=== PATIENT | female | born 1965 | race Caucasian/White ===

== ENCOUNTER 2017-11-21 16:24 | Outpatient (REF) | payer BC, SELFPAY ==
--- NOTE | 2017-11-21 11:00 | PAPFT_PTH ---
PATIENT: Sabiha Malin LOC: [facility] U#:[id number] AGE/SX: 52/F ROOM: RE11/21/[address]: Stephanie Ford MD : 1965 BED: DIS: 11/21/2017 SPEC #: [id number] RECD: 11/21/17 18:49 STATUS: SHELIA REShen #: [id number] GAGE: 11/21/17 11:[address]: Stephanie Ford DEPT: [facility] Cytology RECD BY: Giovanna Johnson Tissues: 1 - CX/ENDOCX FOR PAP SMEARS Procedures: PAP THIN PREP/UVM Screening HPV DNA PROBE Comments: [id number]
== END 2017-11-21 16:44 ==
LOC: LBN 16:24
PROVIDERS: PCP Family Medicine; Visit Provider Family Medicine
DX: Z12.4 Encounter for screening for malignant neoplasm of cervix (principal); Z11.51 Encounter for screening for human papillomavirus (HPV)
CPT/HCPCS: 88142; 87624

== ENCOUNTER 2018-03-09 18:44 | Outpatient (REF) | payer BC, SELFPAY | END 2018-03-09 19:04 | LOC: LBN 18:44 | PROVIDERS: PCP Family Medicine; Visit Provider Family Medicine | DX: N39.0 Urinary tract infection, site not specified (principal) | CPT/HCPCS: 87077; 87086; 87186 ==

== ENCOUNTER 2018-10-10 02:09 | Outpatient (CLI) | payer BC, SELFPAY ==
[2018-01-10 13:26] LABS: Bilirubin Negative (Negative); Blood Trace-intact (Negative); Clarity Clear; Glucose Negative (Negative); Ketones Negative (Negative); Leukocyte Esterase Trace (Negative); Nitrite Negative (Negative); Urobilinogen 0.2 EU/dL (Up TO 0.2)
[2018-01-10 14:08] LABS: Bacteria Few HPF (Negative); C & S Indicated? Yes; Casts Negative LPF (Negative); Crystals Negative HPF (Negative); Epithelial Cells Rare HPF (Negative); Mucus Negative (Negative); WBC 20-50 HPF (0-5)
--- NOTE | 2018-10-10 12:06 | DI.MAMMO_ITS ---
SYMPTOM/DIAGNOSIS: SCREENING Z12.31 MAMMOGRAM: Mammograms were interpreted according to the usual protocol including computer analysis with CAD system, tomosynthesis and C view imaging. The breasts are heterogeneously dense. No dominant mass or clumped microcalcification is identified in either breast. The current examination is compared with previous examinations including February 2016 and there has been no gross interval change in appearance in comparison with the previous studies. CONCLUSION: No specific evidence of malignancy at this time. Routine screening examinations are suggested at yearly intervals in this age group according to the ACS/ACR guidelines. Category 1, breast density category C. MQSA ASSESSMENT OF FINDINGS: Negative. Category 1. Patient will receive a letter notifying them of these results. Bi-RADS category C. The breasts are heterogeneously dense, which may obscure small masses.
== END 2018-10-10 02:29 ==
LOC: LBO 02:09 → DI 12:05
PROVIDERS: PCP Family Medicine; Visit Provider Family Medicine
DX: R30.0 Dysuria (principal); Z12.31 Encounter for screening mammogram for malignant neoplasm of breast
CPT/HCPCS: 77063; 77067; 87077; 81003; 81015; 87086; 87186

== ENCOUNTER 2018-10-23 10:09 | Outpatient (CLI) | payer BC, SELFPAY ==
--- NOTE | 2018-10-23 10:00 | DI.RAD_ITS ---
SYMPTOM/DIAGNOSIS: LT CHEST WALL PAIN SINCE FALL. R/O RIB FX R07.89 PA AND LATERAL CHEST, LEFT RIBS: 10/23 PA and lateral views of the chest and 4 additional views of the ribs were obtained. A marker is placed over the upper anterior chest wall. On a single view there is question of cortical discontinuity of the anterior portion of the left first rib which could represent a nondisplaced fracture. Otherwise, ribs appear intact. Heart is not enlarged. Lungs are clear and well expanded. No pleural effusion seen. CONCLUSION: Negative examination of the chest. Question of nondisplaced left first rib fracture anteriorly.
== END 2018-10-23 10:29 ==
PROVIDERS: PCP Family Medicine; Visit Provider Nurse Practitioner Family
DX: R07.89 Other chest pain (principal)
CPT/HCPCS: 71046; 71100

== ENCOUNTER 2019-09-17 07:55 | Outpatient (CLI) | payer BC, SELFPAY ==
[2019-09-22 01:15] LABS: SARS-CoV-2 RNA Undetected (Undetected); SARS-CoV-2 Specimen Source Nasopharynx
== END 2019-09-17 08:15 ==
PROVIDERS: PCP Family Medicine; Visit Provider Family Medicine
DX: Z11.59 Encounter for screening for other viral diseases (principal)
CPT/HCPCS: U0003

== ENCOUNTER 2019-12-25 10:44 | Outpatient (REF) | payer BC, SELFPAY ==
[2019-12-25 13:29] LABS: Calculated LDL 110 mg/dL (<100); Cholesterol 210 mg/dL (<200); HDL Cholesterol 88 mg/dL (40-60); Triglyceride 60 mg/dL (<150)
== END 2019-12-25 11:04 ==
LOC: LBN 10:44
PROVIDERS: PCP Family Medicine; Visit Provider Emergency Medicine
DX: Z13.220 Encounter for screening for lipoid disorders (principal)
CPT/HCPCS: 80061

== ENCOUNTER 2020-07-07 16:09 | Outpatient (REF) | payer BC, SELFPAY ==
--- NOTE | 2020-07-07 15:00 | PAPFT_PTH ---
PATIENT: Sabiha Malin LOC: [facility] U#:[id number] AGE/SX: 54/F ROOM: RE07/07/[address]: Stephanie Ford MD : 1965 BED: DIS: 07/07/2020 SPEC #: [id number] RECD: 07/08/20 12:59 STATUS: SHELIA REShen #: [id number] GAGE: 07/07/20 15:[address]: Stephanie Ford DEPT: [facility] Cytology RECD BY: Giovanna Johnson Tissues: 1 - CX/ENDOCX FOR PAP SMEARS Procedures: PAP THIN PREP/UVM Screening HPV DNA PROBE Comments: [id number]
== END 2020-07-07 16:10 | disposition home or self-care (01) ==
LOC: LBN 16:09
PROVIDERS: PCP Family Medicine; Visit Provider Family Medicine
DX: Z12.4 Encounter for screening for malignant neoplasm of cervix (principal); Z11.51 Encounter for screening for human papillomavirus (HPV)
CPT/HCPCS: 88142; 87624

== ENCOUNTER 2020-07-23 01:44 | Outpatient (CLI) | payer BC, SELFPAY ==
--- NOTE | 2020-07-23 08:00 | DI.MAMMO_ITS ---
Exam(s) MAMMO SCREENING EXAM: MAMMO SCREENING CLINICAL HISTORY: screening,Z12.39. TECHNIQUE: Bilateral full field digital CC and MLO mammographic images were obtained with 3D tomosyn thesis and utilizing computer aided detection (CAD). COMPARISON: Prior mammograms dating back to 2012, the most recent being September 2018. FINDINGS: Fibroglandular tissue is moderately dense, this decreasing sensitivity mammogram for finding hidden u nderlying lesions. There are no new spiculated masses nor malignant appearing microcalcification groups. Benign microcalcifications are again noted. There is no significant architectural distortion nor skin thickening-retraction. IMPRESSION: Moderately dense fibroglandular tissue. No obvious radiographic evidence of malignancy. BI-RADS Category 1 - Negative Breast Density - Category C - Heterogeneously dense Breast density Category C or D implies that the patient has dense breast tissue. Dense breast tissue can make it harder to find cancer on a mammogram. Dense breast tissue is also associated with an incr eased risk of breast cancer. This information about the result of the mammogram report was provided to the patient to raise their awareness. Use this report when you speak with the patient about their risks for breast cancer, which includes their family history. At that time, you may recommend additional screening tests (Ultrasoun d or MRI) as these tests may add significant information. A negative radiographic report should not delay biopsy if a dominant or clinically suspicious mass is present. Up to ten percent of cancers are not identified on mammography. A negative report may reinforce clinical impression. Adenosis and dense breasts may obscure an underlying neoplasm. False positive reports average 6 to 10%. Patient will receive a letter notifying them of these results.
== END 2020-07-23 02:04 ==
PROVIDERS: PCP Family Medicine; Visit Provider Family Medicine
DX: Z12.31 Encounter for screening mammogram for malignant neoplasm of breast (principal)
CPT/HCPCS: 77063; 77067

== ENCOUNTER 2020-12-29 02:39 | Outpatient (CLI) | payer BC, SELFPAY ==
[2020-12-29 12:55] LABS: Source Nasal/Nares
[2020-12-29 23:12] LABS: COVID-19 PCR Negative (Negative)
== END 2020-12-29 02:40 | disposition home or self-care (01) ==
LOC: LBO 02:39
PROVIDERS: Surgery; PCP Family Medicine; Visit Provider Physical Therapy Assistant
DX: Z20.822 Contact with and (suspected) exposure to COVID-19 (principal); Z01.818 Encounter for other preprocedural examination
CPT/HCPCS: 87635

== ENCOUNTER 2020-12-31 11:27 | Day surgery (SDC) | payer BC, SELFPAY ==
--- NOTE | 2020-12-31 06:58 | W.COLOREPORT ---
Colonoscopy Report Date of procedure: 12/31/20 Pre-op diagnosis general: Colon Cancer Screening and family history Post-op diagnosis procedure note: same Procedure: Colonoscopy Surgeon: Estefani Garza Anesthesia Type: General:No Airway (Josie Bowling CRNA) Estimated blood loss (mL): 0 Complications: None Disposition: same day Indications: The patient is here for Colonoscopy pre-op. Her last screening was in 2009 and was unremarkable. She reports a family hx of colon cancer in her mother in her 70s. She has not had any bowel habit changes. -Discussed colonoscopy bowel prep as well as the procedure. Discussed possible complications of the procedure to include bleeding, pain, perforation, missed small lesion/polyp, sore throat, aspiration and adverse reaction to the medications. Questions were answered to patient?s satisfaction. No guarantees were implied or given. Prep: Miralax/Dulcolax Procedure Start Time: 14:00 Procedure End Time: 14:17 Retraction Time: 8 minutes Findings: Normal colon Procedure Description: After informed consent was obtained the patient was taken to the procedure room and placed in a left decubitous position. Monitors were applied and a time out was done. The patients name, date of , procedure, allergies to medications and metal in their body was reviewed. The patient was then sedated. Once sedated and comfortable a rectal exam was done. External exam was normal. Internal exam revealed a normal sphincter tone and no palpable masses. The scope was then introduced and retro-flexed. No internal hemorrhoids, polyps or masses were identified on retro-flexion. The scope was then advanced to the cecum without difficulty. The ileocecal vlave and appendiceal orifice were identified. The prep was adequate. The scope was then slowly retracted over 8 minutes back into the rectum. There were no polyps. There was no diverticulosis noted. The scope was removed and the patient was woken up and taken back to Same day surgery in stable condition. The patient tolerated the procedure well and there were no immediate complications. Follow up: The patient should follow up in 5 years unless they develop changes in bowel habits or other new gastrointestinal complaints.
--- NOTE | 2020-12-31 06:59 | W.PM.DSUDISC ---
Discharge Plan Disposition Patient Disposition: HOME Condition: Good Discharge Details Reason For Visit: Colonoscopy Attending Provider: Estefani Garza Primary Care Provider: Lashell Quispe Home Meds and New Rx's Prescriptions: Continued magnesium 200 mg tablet 400 mg PO DAILY RF: 0 black cohosh 200 mg capsule 200 mg PO DAILY RF: 0 Discontinued polyethylene glycol 3350 17 gram/dose powder 238 g PO ONCE Qty: 238 RF: 0 bisacodyl [Dulcolax (bisacodyl)] 5 mg tablet,delayed release (DR/EC) 5 mg PO ONCE Qty: 4 RF: 0 Discharge Instructions Additional Instructions: Findings: Normal colonoscopy Follow up: 5 years Please call if you develop: fevers >101.5 Nausea or Vomiting Abdominal pain that is not transient Rectal bleeding that is more then a tbsp A hard abdomen and inability to pass gas DAY SURGERY UNIT POST ENDOSCOPY INSTRUCTIONS Instructions for everyone who is given Anesthesia: For your safety, please do the following for the next 24 Hours: a. Do not drive or operate dangerous equipment b. Do not drink alcohol beverages or use any recreational drugs for the first 24 hours or while taking pain medications. The medications in your body may have a reaction that can be dangerous. c. Do not make any important decisions or sign any important papers 1. Generally there are no restrictions on your activity after a day or so has gone by, but you may feel a bit fatigued for a few days. 2. After you arrive home you may have a light meal and return to a normal diet as you can tolerate it without feeling sick to your stomach. 3. After surgery, you may feel pain or discomfort. This should be only transient, but if it persists please contact your doctor. 4. If there are any questions regarding the findings of your procedure, please feel free to contact your doctor. 6. If you are unable to contact your doctor with a problem, contact the hospital at [phone]. 7. Continue all your regular medications unless directed otherwise. I understand the above instructions and have no questions. Signature of Patient or Responsible Adult Escort Date/Time Name of Responsible Adult Escort Signature of Nurse Date/Time Activity:: Activity as Tolerated Diet:: As Tolerated Discharge Orders Discharge Orders: Discharge Order (Routine); Ordered 12/31/20 Ordered By: Estefani Garza
[2020-12-31 11:59] VITALS: BP 125/77; PULSE 42; RESP 16; TEMP 36.4; O2SAT 100
[2020-12-31] MEDS: Lactated Ringers 1,000 ML 80 ML IV (12:15)
--- NOTE | 2020-12-31 12:45 | W.ANESPRE ---
General Info Date of Service Date Performed: 12/31/20 Height: 5 ft 7.75 in Weight: 62.2 kg Body Mass Index (BMI): 20.9 Surgical Procedure: Operation Date: 12/31/20 14:35 Proposed Procedures Side Surgeon p Colonoscopy Estefani Garza MD Meds Allergies and Home Medications Allergies Allergy/AdvReac Type Severity Reaction Status Date / Time eucalyptus Allergy Severe constricked Unverified 12/31/20 11:54 my throat when I was in hot tub Penicillins Allergy Unknown RASH Unverified 12/31/20 11:54 Home Medication Medication Instructions Recorded bisacodyl 5 mg tablet,delayed 5 mg PO ONCE #4 tab 12/12/20 release black cohosh 200 mg capsule 200 mg PO DAILY 12/12/20 magnesium 200 mg tablet 400 mg PO DAILY tab 12/12/20 polyethylene glycol 3350 17 238 g PO ONCE #238 g 12/12/20 gram/dose oral powder Current Visit Medications: Current Medications Generic Name Dose Route Start Last Admin Trade Name Freq PRN Reason Stop Dose Admin Hyoscyamine Sulfate 0.125 mg 12/31/20 06:59 Hyoscyamine 0.125 Mg Sl/Oral/Chew SL DIRECTED PRN Ringer's Solution 1,000 mls @ 80 mls/hr 12/31/20 06:00 12/31/20 12:15 IV 01/29/21 23:59 80 mls/hr INFUSION JOÃO Administration IV Miscellaneous Supplies 1 each 12/31/20 06:00 Iv Access IV 01/29/21 23:59 DIRECTED JOÃO Ondansetron HCl 4 mg 12/31/20 06:59 Ondansetron 4 Mg/2 Ml Vial IVP Q4H PRN PRN Nausea / Vomiting Sodium Chloride 0 ml 12/31/20 06:00 Normal Saline Flush 10 Ml Syr IV 01/29/21 23:59 PRN PRN Sodium Chloride 0 ml 12/31/20 06:00 Normal Saline 10 Ml Vial IJ 01/29/21 23:59 DIRECTED PRN Sterile Water 0 ml 12/31/20 06:00 Water,Injection,Sterile 10 Ml Vial IJ 01/29/21 23:59 DIRECTED PRN PFSH Active Problems Active Problems: Problem Status Onset Code Concern about heart attack without diagnosis Z71.1 Encounter for medical screening examination Z13.9 Medical History Medical History (Updated 12/31/20 @ 11:58 by Anabela Galvan) Concern about heart attack without diagnosis Per pt. stated she had f/u wit hPCP and this was no longer a concern. Pt. reports she has a murmur and bradycardic and had it checked out Encounter for medical screening examination Surgical History Surgical History History of Achilles tendon repair Hx of section Hx of colonoscopy Meniscectomy 07/31/15 RIGHT KNEE-[facility] REPAIR DR WILDER; RIGHT THUMB; 11/09/16 Tobacco Smoking/Tobacco Use Status: Never Passive smoking exposure: Yes Second hand exposure: Yes Alcohol Alcohol Intake: current Alcohol intake frequency: a few times a week Alcohol type: beer and wine Substance Use Substance use: Never Substance use type: does not use Details: alcohol: t-3, couple drinks Vital Signs and Lab Results Vital Signs Most Recent Vital Signs in EMR: Most Recent Vital Signs Temp Pulse Resp BP Pulse Ox 36.4 C L 42 L 16 125/77 100 12/31/20 11:59 12/31/20 11:59 12/31/20 11:59 12/31/20 11:59 12/31/20 11:59 Lab Results Blood Type / Crossmatch: No Data to Display Complete Blood Count: No Data to Display Complete Metabolic Panel: No Data to Display Liver Function Panel: No Data to Display Coagulation Panel: No Data to Display Cardiac Panel: No Data to Display Arterial Blood Gas: No Data to Display Venous Blood Gas: No Data to Display Pancreas Panel: No Data to Display Thyroid Panel: No Data to Display Infectious Disease: Coronavirus (COVID-19)(PCR) Negative (Negative) 12/29/20 11:20 12/29/20 Coronavirus 2019 Source Nasal/Nares 12/29/20 11:20 12/29/20 Blood Cultures: No Data to Display Toxicology Panel: No Data to Display Imaging and Studies Imaging and Studies EKG Summary: Conclusion Sinus bradycardia...rate< 60 12/25/19 Anesthesia Assessment and Plan Anesthesia History Personal History: No History of Anesthesia Complications Family History: No Family History of Anesthesia Complications Exercise Tolerance Exercise Tolerance: Metabolic Equivalents>4 Pertinent Negatives Pertinent Negatives: No Symptoms of GERD, No Major Cardiovascular Symptoms or Complaints, No Major Pulmonary Symptoms or Complaints and No History of CVA/TIA Cardiac & Pulmonary Exam Cardiac Exam: Normal S1/S2 Heart Sounds Pulmonary Exam: Clear Bilateral Breath Sounds Cardiac and Pulmonary Comment:: Bradycardia normal for patient, 30?s to 40?s Airway Exam Known Difficult Airway: No Mallampati Class: 1 Mouth Opening: Normal (> 3cm) Thyromental Distance: Greater than 3 cm Neck Range of Motion: Full ROM Neck Circumference: Normal Teeth Condition: Normal Dentition ASA Classification ASA Score: ASA 2 Emergency Case?: No NPO Status NPO Status: NPO Clears >2 hours, Solids >8 hours Anesthesia Plan Resuscitation Status: Full Code Anesthesia Technique: General Anesthesia Airway Planned: Natural Airway Monitors Used: Standard Monitors
[2020-12-31 12:50] VITALS: BMI 20.9
[2020-12-31 14:23] VITALS: BP 107/67; PULSE 51; RESP 16; TEMP 36.3; O2SAT 98
--- NOTE | 2020-12-31 14:34 | W.ANESPOSTOP ---
Postoperative Evaluation Date, Time and Location Date Performed: 12/31/20 Time Performed: 14:34 Patient Location: Day Surgery Unit Vital Signs Most Recent Imported Vital Signs: Most Recent Vital Signs Temp Pulse Resp BP Pulse Ox 36.3 C L 51 L 16 107/67 98 12/31/20 14:23 12/31/20 14:23 12/31/20 14:23 12/31/20 14:23 12/31/20 14:23 Pain Score Most Recent Pain Score: Most Recent Pain Score Pain Level 2 12/31/20 14:23 Assessment Mental Status: Awake (Alert & Oriented to Patient Baseline) Airway and Respiratory Function: Patent airway with normal (patient baseline) respiratory exam Cardiovascular Function: Hemodynamically Stable Hydration Status: Adequately Hydrated Nausea & Vomiting: No Nausea or Vomiting Pain: Pt. Denies Any Pain Peripheral Nerve Block: Patient did not receive a nerve block
[2020-12-31 14:50] VITALS: BP 122/73; PULSE 43; RESP 16; TEMP 36.1; O2SAT 100
== END 2020-12-31 15:21 | disposition home or self-care (01) ==
PROVIDERS: PCP Family Medicine; Visit Provider Surgery
PROC: 0DJD8ZZ Inspection of Lower Intestinal Tract, Via Natural or Artificial Opening Endoscopic (ICD-10-PCS; CPT 45378; principal; 2020-12-31 14:30)
DX: Z12.11 Encounter for screening for malignant neoplasm of colon (principal); Z80.0 Family history of malignant neoplasm of digestive organs
CPT/HCPCS: 45378; J2001

== ENCOUNTER 2021-08-07 16:11 | Outpatient (REF) | payer BC, SELFPAY ==
--- NOTE | 2021-08-07 16:00 | SKI_PTH ---
PATIENT: Sabiha Malin LOC: [facility] U#:[id number] AGE/SX: 55/F ROOM: RE08/07/[address]: Lashell Quispe : 1965 BED: DIS: 08/07/2021 SPEC #: [id number] RECD: 08/11/21 12:12 STATUS: SHELIA NOLAND #: [id number] GAGE: 08/07/21 16:[address]: Lashell Quispe DEPT: Surgical Specimen RECD BY: Giovanna Johnson Tissues: 1 - SKIN BIOPSY(SHAVE/PUNCH) Procedures: SKIN LEVEL 4 Comments: [id number]
== END 2021-08-07 16:12 | disposition home or self-care (01) ==
LOC: LBN 16:11
PROVIDERS: PCP Family Medicine; Visit Provider Family Medicine
DX: L82.1 Other seborrheic keratosis (principal)
CPT/HCPCS: 88305

== ENCOUNTER 2022-08-03 00:59 | Outpatient (CLI) | payer BC, SELFPAY ==
--- NOTE | 2022-08-03 08:20 | DI.MAMMO_ITS ---
Exam(s) MAMMO SCREENING EXAM: MAMMO SCREENING CLINICAL HISTORY: screening,z12.39 TECHNIQUE: Bilateral full field digital CC and MLO mammographic images were obtained with 3D tomosyn thesis and utilizing computer aided detection (CAD). COMPARISON: Available for comparison. FINDINGS: Masses/Architectural Distortion: None seen. Microcalcifications: No suspicious pleomorphic-type are seen. Skin Thickening/Nipple Retraction: None. IMPRESSION: 1. No significant interval change with no specific features of malignancy noted. 2. Unless there is more urgent need, screening mammography is recommended, as per [employer] guidelines. BI-RADS Category 1 - Negative Breast Density - Category C - Heterogeneously dense Breast density category C or D implies that the patient has dense breast tissue. Dense breast tissue is very common and is not abnormal but dense breast tissue can make it harder to find cancer on a ma mmogram. Also, dense breast tissue may increase their breast cancer risk. This information about the result of the mammogram report was provided to the patient to raise their awareness. Use this report when you speak with the patient about their risks for breast cancer, which includes their family hist ory. At that time, you may recommend for more screening tests (Ultrasound or MRI) as they might be us eful based on their risk. A negative radiographic report should not delay biopsy if a dominant or clinically suspicious mass is present. Up to ten percent of cancers are not identified on mammography. A negative report may reinforce clinical impression. Adenosis and dense breasts may obscure an underlying neoplasm. False positive reports average 6 to 10%. Patient will receive a letter notifying them of these results.
== END 2022-08-03 01:19 ==
LOC: DI 00:59
PROVIDERS: PCP Family Medicine; Visit Provider Family Medicine
DX: Z12.31 Encounter for screening mammogram for malignant neoplasm of breast (principal)
CPT/HCPCS: 77063; 77067

== ENCOUNTER 2023-07-25 13:33 | Outpatient (CLI) | payer BC, SELFPAY ==
[2023-07-25 07:44] LABS: Anion Gap 7.6 mmol/L (3-11); BUN 14 mg/dL (7-18); CO2 30.4 mmol/L (21.0-32.0); CREATININE 0.9 mg/dL (0.55-1.02); Calcium 8.8 mg/dL (8.5-10.1); Chloride 104 mmol/L (98-107); Estimated GFR 73.64 (mL/min/1.73m2); Glucose 100 mg/dL (74-106); Potassium 4.2 mmol/L (3.5-5.1); Sodium 142 mmol/L (136-145)
[2023-07-25 07:56] LABS: Calculated LDL 110 mg/dL (<100); Cholesterol 232 mg/dL (<200); HDL Cholesterol 105 mg/dL (40-60); Triglyceride 85 mg/dL (<150)
== END 2023-07-25 13:34 | disposition home or self-care (01) ==
LOC: LBO 13:34
PROVIDERS: PCP Family Medicine; Visit Provider Family Medicine
DX: I10 Essential (primary) hypertension (principal); Z13.6 Encounter for screening for cardiovascular disorders
CPT/HCPCS: 36415; 80048; 80061

== ENCOUNTER 2024-01-24 15:27 | Outpatient (REF) | payer BC, SELFPAY | END 2024-01-24 15:28 | disposition home or self-care (01) | LOC: LBN 15:27 | PROVIDERS: PCP Family Medicine; Visit Provider Family Medicine | DX: N39.0 Urinary tract infection, site not specified (principal) | CPT/HCPCS: 87077; 87086; 87186 ==

== ENCOUNTER 2024-03-23 08:37 | Emergency (ER) | payer OTHER, SELFPAY ==
[2024-03-23] VITALS (16 sets, daily range): BP systolic 126–146; BP diastolic 66–84; PULSE 36–42; RESP 16; TEMP 35.8; O2SAT 98–100
--- NOTE | 2024-03-23 09:12 | ED.GENADUL_ITS ---
Discharge Plan Disposition Patient Disposition: Home Condition: Stable Discharge Details Clinical Impression: Fracture of multiple ribs of left side, Fall Primary Care Provider: Lashell Quispe ED Provider: Ortega Coronado Home Meds and New Rx's Prescriptions: Continued black cohosh 200 mg capsule 200 mg PO DAILY estradiol [Estrace] 0.01 % (0.1 mg/gram) cream 1 g vaginal .2xw Qty: 42.5 12RF Discharge Instructions Instructions: Rib fractures in adults, Morphine (Systemic) Additional Instructions: Please take ibuprofen over the counter. Take 600mg by mouth every 6 hours as needed for pain. Please take acetaminophen (tylenol) - 650mg every 6 hours by mouth as needed for pain. Take morphine for severe pain refractory to anti-inflammatory medication. Use incentive spirometer every 2 hours while awake over the next 2 weeks. Please contact your primary care physician to arrange follow-up. Return to the ER immediately for any worsening or new concerning symptoms. Referrals: Lashell Quispe MD [Primary Care Provider] - Discharge Data Discharge Date/Time-TO BE ENTERED AT DEPARTURE: 03/23/24 10:19 HPI General Mode of arrival: EMS . Date/Time Provider Initiated Documentation: 03/23/24 08:46 . Limitations to Documentation: no limitations . Information obtained by: patient . HPI Narrative: 58-year-old female, history of bradycardia and otherwise healthy, presents with chief complaint of left pain. Patient notes [place] her left lateral ribs on a 3 foot pole. She has had severe pain in her left lateral chest since the injury. Pain is worse with deep inspiration and with certain positions including lying flat. During the fall she did not sustain any other injury. She has felt lightheaded secondary to pain. EMS established IV and administered acetaminophen 1 g prior to arrival which patient notes did help to some degree. Related Data Home Medications ?Medication ?Instructions ?Recorded ?Confirmed black cohosh 200 mg capsule 200 mg PO DAILY 12/12/20 03/27/24 estradiol 0.01% (0.1 mg/gram) 1 g vaginal .2xw #42.5 grams 12/19/23 03/27/24 vaginal cream (Estrace) Previous Rx's ?Medication ?Instructions ?Recorded estradiol 0.01% (0.1 mg/gram) 1 g vaginal .2xw #42.5 grams 12/19/23 vaginal cream (Estrace) Allergies Allergy/AdvReac Type Severity Reaction Status Date / Time eucalyptus Allergy Severe constricked Verified 03/27/24 16:25 my throat when I was in hot tub Penicillins Allergy Unknown RASH Verified 03/27/24 16:25 General Stated Complaint: Trauma SHY: 3 Review of Systems All systems reviewed & are unremarkable except as noted in HPI and below Respiratory Respiratory: Reports as per HPI Gastrointestinal Gastrointestinal: Denies abdominal pain Exam Const General: cooperative and no acute distress Orientation: alert and awake Other: Pain with movement HENMT Head: normocephalic and atraumatic Mouth: moist mucous membranes Neck Neck: trachea midline Chest Chest: tenderness rib (left lateral 4-6) Resp Effort & Inspection: abnormal respiratory pattern, not labored and no respiratory distress Auscultation: clear to auscultation bilaterally, no rales, no rhonchi and no wheezes Other: Shallow breathing Cardio Rate: bradycardic Rhythm: regular rhythm GI Palpation: soft, not firm, no guarding, no masses, not rigid and nontender Back/Spine/Pelvis Cervical Spine: cervical ROM normal, No cervical spinal tenderness and No step off deformity Skin General skin exam: no rashes or lesions noted Neuro General: patient alert, patient awake and tone normal Course Vital Signs Vital signs: Vital Signs Temperature 35.8 C L 03/23/24 08:39 Pulse 36 L 03/23/24 08:39 Respiratory Rate 16 03/23/24 08:39 Blood Pressure 144/68 H 03/23/24 08:39 Pulse Oximetry 100 03/23/24 08:39 Temperature 35.8 C L 03/23/24 08:39 Pulse 36 L 03/23/24 08:39 Respiratory Rate 16 03/23/24 08:39 Respiratory Effort Normal 03/23/24 08:51 Respiratory Depth Normal 03/23/24 08:51 Respiratory Pattern Normal 03/23/24 08:51 Blood Pressure 144/68 H 03/23/24 08:39 Pulse Oximetry 100 03/23/24 08:39 Oxygen Delivery Method Room Air 03/23/24 08:39 Oxygen Flow Rate 0 03/23/24 08:39 Pain Level 7 03/23/24 08:51 Medical Decision Making 923??58-year-old female, history of bradycardia and otherwise healthy, here 2 hours after slip and fall with direct impact to her left lateral chest on pole. Patient has pain with deep inspiration. She is focally tender over left lateral 4-6 ribs. I am concerned about rib fracture versus pneumothorax. POCUS performed and lung sliding not visualized although patient not able to take deep breath. Plan to obtain chest x-ray. -- cxr with rib series reviewed and interpreted by radiology: 1. No acute pulmo nary findings. 2. Acute fractures involving the lateral aspects of the left 4th, 5th and 6th ribs. The ribs show minimal displacement. 3. No pneumothorax or pleural effusion. Results reviewed with the patient. Plan for incentive spirometry, follow-up with PCP. Disposition decision was made weighing the risks and benefits of hospitalization versus outpatient treatment, the risk for further decompensation, and the patient's wishes. The patient was stable and requested discharge. Prior to discharge, my usual and customary return precautions were reviewed with the patient - this included follow-up instructions and reason to return to the emergency department if condition worsens, does not improve as expected, or other new concerns arise. Quality:SDOH Health Related Social Needs: No Data to Display PFSH All Active Problems (Updated 03/27/24 @ 16:59 by Erica Romero NP) Ringing in ears (Acute) Fall (Acute) Fracture of multiple ribs of left side (Acute) Hearing impairment (Acute) Menopausal and female climacteric states (Acute) Medical History Family history of colon cancer Surgical History Hx of section History of Achilles tendon repair both sides Hx of colonoscopy (~12/2020) [facility] REPAIR DR WILDER; RIGHT THUMB; 11/09/16 Meniscectomy 07/31/15 RIGHT KNEE-LRH Family History Grandfather Myocardial infarction Mother Colon cancer Father Leukemia Sister Glaucoma Maternal Grandmother Glaucoma Paternal Grandmother Glaucoma Social History Smoking/Tobacco Use Status: Never Second Hand Exposure: Yes Smoking risk assessment performed?: Yes Alcohol Intake: current Alcohol Intake frequency: a few times a week Alcohol type: wine Drug use: Never Substance use type: does not use Counseling given: No Counseling provided: none Details: alcohol: t-3, couple drinks Caregiver/Support person: No Household members: spouse Housing: house Number of Children: 1 Communication Needs: None Education Level: college Do you need help understanding health information?: Never 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 [employer] Pets and animals: Yes Pets and animals: dog(s) Sexually active: Yes Do you think of yourself as: straight/heterosexual Current gender identity: female What is your relationship status?: How often do you talk on the phone with friends or family?: once per week How often do you get together with friends or relatives?: three or more times per week How often do you attend muslim or latter day services?: 1-3 times per year Do you belong to any clubs or organized social groups?: no Panel score (0-1 are the most socially isolated patients): 2 What type of physical activity do you participate in: walking, bicycling, weight lifting and running Duration: 45-60 minutes/day Frequency: 5-6 times per week Kathrine/Congregation: No preference Special kathrine needs: No Seatbelt use: always Drive intox or ride w/intox sales route driver: No Do you feel safe at home: Yes Do you feel safe in your relationship?: Yes Additional Social history: Enjoys playing guitar, reading, being outside. PAWSS Have you Been Recently Intoxicated or Drunk Within the Last 30 days?: No Have you Ever Experienced Previous Episodes of Alcohol Withdrawal?: No Have you ever Experienced Withdrawal Seizures?: No Have you ever Experienced Delirium Tremens(DT)s?: No Have you ever undergone Alcohol Rehabilitation Treatment (i.e, inpt ot outpatient treatment programs)?: No Have you ever Experienced Blackouts?: No Have you ever Combined Alcohol with other Downers within the last 90 days?: No Have you ever Combined Alcohol with any other Substance of Abuse during the last 90 days?: No Positive Blood Alcohol level on Presentation? [PCS.BAL]: No Result: 0 POCUS Exam (ED) Limited Thoracic Lung Exam DATE OF EXAM: 03/23/24 TIME OF EXAM: 09:24 PROVIDER THAT PERFORMED THE STUDY: Ortega Coronado IS THIS A REPEAT EXAM DURING THIS ENCOUNTER: No REASON FOR EXAM: Chest pain VISUALIZED STRUCTURES: left anterior PERTINENT FINDINGS/IMPRESSION: absent lung sliding/left side DIFFERENTIAL DIAGNOSES: pneumothorax vs poor inspiratory effort Exam complete
--- NOTE | 2024-03-23 09:15 | DI.RAD_ITS ---
Exam(s) XR RIBS LT W PA LAT CHEST EXAM: XR RIBS LT W PA LAT CHEST CLINICAL HISTORY: chest pain, trauma TECHNIQUE: 2D digital imaging was performed. Five images are obtained. COMPARISON: CR XR ribs LT w PA lat chest from 10/23/2018 FINDINGS: MEDIASTINUM: Normal. HEART: Normal. PULMONARY VASCULATURE: Normal. LUNGS: Clear. PLEURAL SPACE: No pleural effusion or pneumothorax. BONE:Within normal limits for the patient's age. LEFT RIBS: Minimally displaced fractures of the lateral aspects of the left 4th, 5th and 6th ribs. OTHER FINDINGS:Normal. IMPRESSION: 1. No acute pulmonary findings. 2. Acute fractures involving the lateral aspects of the left 4th, 5th and 6th ribs. The ribs show mi nimal displacement. 3. No pneumothorax or pleural effusion. DATA REPOSITORY: RADIATION DOSE DELIVERED:
[2024-03-23] MEDS: MORPHine IR 15 MG TAB, 4 TABS/BTL PO (10:03)
[2024-03-23] MEDS: Ibuprofen 600 MG TAB PO (10:03)
[2024-03-23] MEDS: Lidocaine 5% Patch 1 PATCH TP (10:05)
== END 2024-03-23 10:19 | disposition home or self-care (01) ==
PROVIDERS: Emergency Provider Student in an Organized Health Care Education/Training Program; PCP Family Medicine
DX: S22.42XA Multiple fractures of ribs, left side, initial encounter for closed fracture (principal); W00.0XXA Fall on same level due to ice and snow, initial encounter; Y93.23 Activity, snow (alpine) (downhill) skiing, snowboarding, sledding, tobogganing and snow tubing
CPT/HCPCS: 76604; 99284; 71046; 71100; 99283

== ENCOUNTER 2024-04-30 01:04 | Outpatient (CLI) | payer OTHER, SELFPAY ==
--- NOTE | 2024-04-30 06:45 | DI.RAD_ITS ---
Exam(s) XR RIBS LT W PA LAT CHEST EXAM: XR RIBS LT W PA LAT CHEST CLINICAL HISTORY: Acute fractures of ribs,lt,S22.42xa TECHNIQUE: 2D digital imaging was performed. Six images are obtained. COMPARISON: CR XR RIBS LT W PA LAT CHEST from 03/23/2024 FINDINGS: MEDIASTINUM: Normal. HEART: Normal. PULMONARY VASCULATURE: Normal. LUNGS: Clear. PLEURAL SPACE: No pleural effusion or pneumothorax. BONE:Within normal limits for the patient's age. LEFT RIBS: There has been no change in alignment of the fractures involving the left 4th 5th and 6th ribs. OTHER FINDINGS:Normal. IMPRESSION: 1. No acute pulmonary findings. 2. Stable left rib fractures. 3. No pleural effusion or pneumothorax. DATA REPOSITORY: RADIATION DOSE DELIVERED:
== END 2024-04-30 01:24 ==
LOC: DI 01:04
PROVIDERS: PCP Family Medicine; Visit Provider Family Medicine
DX: S22.42XD Multiple fractures of ribs, left side, subsequent encounter for fracture with routine healing (principal); X58.XXXD Exposure to other specified factors, subsequent encounter
CPT/HCPCS: 71046; 71100

== ENCOUNTER 2024-05-01 09:13 | Outpatient (CLI) | payer OTHER, SELFPAY ==
--- NOTE | 2024-05-01 09:00 | DI.RAD_ITS ---
Exam(s) XR FOOT RT COMPLETE EXAM: XR FOOT RT COMPLETE CLINICAL HISTORY: heel pain, pain rt heel, M79.671. TECHNIQUE: 2D digital imaging was performed. COMPARISON: No exams were available for comparison FINDINGS: 3 views There is no evidence of fracture or diastasis of the Lisfranc joint. There is hallux valgus noted. There are mild degenerative changes in the great toe metatarsophalangeal joints. Other MTP joints ap pear unremarkable. Some soft tissue swelling is noted lateral to the 5th metatarsal head. There are no soft tissue calcifications at this level and there are no bony erosions nor obvious abnormality i n the 5th toe metatarsophalangeal joint. Tarsometatarsal joints appear unremarkable. There is no pes planus. At the level the hindfoot there is thickening of the insertional aspect of the Achilles tendon and t here is a Neva deformity-bone prominence (pump bump) on the posterior superior aspect of the calca neus. There is no inferior calcaneal spur. 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 Correlation with any clinical signs of H aglund syndrome recommended. Significant hallux valgus. DATA REPOSITORY: RADIATION DOSE DELIVERED:
== END 2024-05-01 09:33 ==
PROVIDERS: PCP Family Medicine; Visit Provider Podiatrist
DX: M89.8X7 Other specified disorders of bone, ankle and foot (principal)
CPT/HCPCS: 73630

== ENCOUNTER 2024-09-06 00:23 | Outpatient (CLI) | payer OTHER, SELFPAY ==
--- NOTE | 2024-09-06 08:30 | DI.MAMMO_ITS ---
Exam(s) MAMMO SCREENING EXAM: MAMMO SCREENING CLINICAL HISTORY: screening,z12.39 TECHNIQUE: Mammograms were interpreted according to the usual protocol including computer analysis with CAD system, tomosynthesis and C-view imaging. COMPARISON: 2014 through 2022 FINDINGS: The breasts are composed of scattered fibroglandular densities, Breast Density category B. No suspicious masses or suspicious microcalcifications are seen. No skin thickening or abnormal axillary lymph nodes are seen. There has been no significant change from prior exams. IMPRESSION: BI-RADS Category 1, Negative mammogram Yearly screening mammography is recommended. Breast Density - Category B - There are scattered areas of fibroglandular density. Breast density Category C or D implies that the patient has dense breast tissue. Dense breast tissue can make it harder to find cancer on a mammogram. Dense breast tissue is also associated with an increased risk of breast cancer. This information about the result of the mammogram report was provided to the patient to raise their awareness. Use this report when you speak with the patient about their risks for breast cancer, which includes their family history. At that time, you may recommend additional screening tests (Ultrasound or MRI) as these tests may add significant information. A negative radiographic report should not delay biopsy if a dominant or clinically suspicious mass is present. Up to ten percent of cancers are not identified on mammography. A negative report may reinforce clinical impression. Adenosis and dense breasts may obscure an underlying neoplasm. False positive reports average 6 to 10%. Patient will receive a letter notifying them of these results.
== END 2024-09-06 00:43 ==
LOC: DI 00:23
PROVIDERS: PCP Family Medicine; Visit Provider Family Medicine
DX: Z12.31 Encounter for screening mammogram for malignant neoplasm of breast (principal); R92.323 Mammographic fibroglandular density, bilateral breasts
CPT/HCPCS: 77063; 77067